=== PATIENT | female | born 1965 | race Asian ===

== ENCOUNTER 2018-05-10 10:17 | Day surgery (SDC) | payer OTHER ==
[~2018-05-10] VITALS: Ht 157.5 cm; Wt 72.7 kg
[2018-05-10 11:15] VITALS: BP 126/75
[2018-05-10] MEDS ORDERED: PIOG30TA4 PO (11:50)
[2018-05-10] MEDS ORDERED: CHOL2000 PO (11:50)
[2018-05-10] MEDS ORDERED: ATOR40TA PO (11:50)
[2018-05-10] MEDS ORDERED: LORA10TA3 PO (11:50)
[2018-05-10] MEDS ORDERED: ALLO300T PO (11:50)
[2018-05-10] MEDS ORDERED: LOSA25TA6 PO (11:50)
[2018-05-10 12:17] LABS: MEAN CORPUSCULAR HEMOGLOBIN 32.8 pg (27.0-34.8); MEAN CORPUSCULAR HGB CONC 34.4 g/dL (32.4-35.8); MEAN CORPUSCULAR VOLUME 95.3 fL (80-100); RED BLOOD COUNT 3.71 x10^6/uL (3.82-5.3); RED CELL DISTRIBUTION WIDTH 13.5 % (9.6-15.2)
[2018-05-10 12:24] LABS: ANION GAP 10 mmol/L (5-15); CALCIUM 9.7 mg/dL (8.5-10.1); CHLORIDE 100 mmol/L (98-107)
[2018-05-10 12:25] LABS: CREATININE 5.63 mg/dL (0.55-1.02)
[2018-05-10 12:39] LABS: BASOPHILS # (AUTO) 0.03 x10^3/uL (0-0.1); BASOPHILS % (AUTO) 1 % (0-1); EOSINOPHILS # (AUTO) 0.25 x10^3/uL (0-0.4); EOSINOPHILS % (AUTO) 5 % (1-7); LYMPHOCYTES # (AUTO) 1.65 x10^3/uL (1-3.4); LYMPHOCYTES % (AUTO) 30 % (22-44); MD SCAN; MONOCYTES # (AUTO) 0.48 x10^3/uL (0.2-0.8); MONOCYTES % (AUTO) 9 % (2-9); NEUTROPHILS # (AUTO) 3.14 x10^3/uL (1.8-6.8); NEUTROPHILS % (AUTO) 57 % (42-75); PLATELET COUNT 95 x10^3/uL (130-400)
[2018-05-10] MEDS ORDERED: FENTANYL PF 100 MCG/2ML ONE (13:29)
[2018-05-10] MEDS ORDERED: VERAPAMIL 2.5 MG/ML, 2ML ONE (13:29)
[2018-05-10] MEDS ORDERED: MIDAZOLAM 1 MG/ML, 2ML ONE (13:29)
[2018-05-10] MEDS ORDERED: HEPARIN 1,000 UNITS/ML, 10ML ONE (13:29)
[2018-05-10] MEDS ORDERED: BIVALIRUDIN 250 MG ONE (13:29)
[2018-05-10] MEDS ORDERED: SODIUM CHLORIDE 0.9% 1,000 ML IV SCH (14:38)
== END 2018-05-10 17:19 | disposition home or self-care (01) ==
LOC: CACL 10:17
PROVIDERS: ATTEND Internal Medicine Cardiovascular Disease
DX: R07.9 Chest pain, unspecified (principal); I10 Essential (primary) hypertension; E78.5 Hyperlipidemia, unspecified; I44.7 Left bundle-branch block, unspecified; E13.9 Other specified diabetes mellitus without complications; I42.9 Cardiomyopathy, unspecified; Z88.8 Allergy status to other drugs, medicaments and biological substances
CPT/HCPCS: 36415; 71046; 80048; 85025; 93458; 99156; C1769; C1894; J1644; J2250; J3010; Q9967; J0583

== ENCOUNTER 2019-08-05 07:30 | Emergency (ER) | payer OTHER, MEDICARE ==
[~2019-08-05] VITALS: Ht 157.5 cm; Wt 68.5 kg
[~2019-08-05 07:30] MED LIST: ALLO300T PO; ATOR40TA PO; CHOL2000 PO; LORA-247 PO; LOSA25TA25 PO; PIOG30TA4 PO
[2019-08-05] MEDS ORDERED: MECLIZINE CHEWABLE 25 MG TAB PO ONE (08:00)
[2019-08-05] MEDS ORDERED: ONDANSETRON 2MG/ML, 2ML IVPush ONE (08:00)
[2019-08-05] MEDS ORDERED: SODIUM CHLORIDE FLUSH 10ML SYR IVF ONE (08:00)
--- NOTE | 2019-08-05 08:06 | NUR ---
PT PRESENTS TO ED WITH DIZZINESS STARTING MONDAY. PT DENIES CP, N/V/D. PT REPORTS LAST DIALYSIS MONDAY, AND DUE TODAY FOR MORE. IV START. XRAY AT BEDSIDE. PT DIZZINESS STOPS WHEN PT IS STILL, INCREASES WITH HEAD TURNING. DAUGHTER AT BEDSIDE. SIDE RAILS UP, CALL LIGHT IN REACH. BLANKET IN PLACE. EKG COMPLETED.
[2019-08-05] MEDS ORDERED: ONDANSETRON 2MG/ML, 2ML ONE (08:09)
[2019-08-05] MEDS ORDERED: MECLIZINE CHEWABLE 25 MG TAB ONE (08:09)
[2019-08-05 08:34] LABS: BASOPHILS # (AUTO) 0.04 x10^3/uL (0-0.1); BASOPHILS % (AUTO) 1 % (0-1); EOSINOPHILS # (AUTO) 0.44 x10^3/uL (0-0.4); EOSINOPHILS % (AUTO) 7 % (1-7); LYMPHOCYTES # (AUTO) 1.25 x10^3/uL (1-3.4); LYMPHOCYTES % (AUTO) 20 % (22-44); MD NO; MEAN CORPUSCULAR HEMOGLOBIN 32.4 pg (27.0-34.8); MEAN CORPUSCULAR HGB CONC 33.6 g/dL (32.4-35.8); MEAN CORPUSCULAR VOLUME 96.4 fL (80-100); MEAN PLATELET VOLUME 7.4 fL (7.4-10.4); MONOCYTES # (AUTO) 0.39 x10^3/uL (0.2-0.8); MONOCYTES % (AUTO) 6 % (2-9); NEUTROPHILS # (AUTO) 4.13 x10^3/uL (1.8-6.8); NEUTROPHILS % (AUTO) 66 % (42-75); PLATELET COUNT 187 x10^3/uL (130-400); RED BLOOD COUNT 3.57 x10^6/uL (3.82-5.3); RED CELL DISTRIBUTION WIDTH 12.7 % (9.6-15.2)
[2019-08-05 08:45] LABS: ALBUMIN 3.6 g/dL (3.4-5.0); ANION GAP 8 mmol/L (5-15); CALCIUM 9.7 mg/dL (8.5-10.1); CHLORIDE 110 mmol/L (98-107); CREATININE 7.32 mg/dL (0.55-1.02)
--- NOTE | 2019-08-05 08:47 | NUR ---
PT TAKEN TO CT VIA JOSE. NAD NOTED AT THIS TIME.
[2019-08-05 08:48] LABS: TROPONIN I < 0.015 ng/mL (0.000-0.045)
[2019-08-05] MEDS ORDERED: DIAZEPAM 5 MG/ML, 2ML ONE (09:09)
--- NOTE | 2019-08-05 09:12 | NUR ---
Patient continues to have complaints of dizziness. RN administered about 2.5 mg IV valium before the patient started to complain of pain at the site. No erythema or edema at IV site. BINTA Garrett aware. Patient on pulse ox and NIBP.
[2019-08-05] MEDS ORDERED: DIAZEPAM 5 MG/ML, 10ML VIAL IV ONE (09:30)
[2019-08-05] MEDS ORDERED: DIAZEPAM 5 MG TABLET PO ONE (09:30)
[2019-08-05] MEDS ORDERED: DIAZEPAM 5 MG TABLET ONE (09:32)
--- NOTE | 2019-08-05 10:08 | NUR ---
Patient arousable to verbal command. Reports drowsiness. Not ready for DC.
[2019-08-05 10:38] VITALS: BP 143/75
--- NOTE | 2019-08-05 10:48 | NUR ---
Patient reports decreased dizziness. Patient/Caregiver given discharge instructions and they have confirmed that they understand the instructions. Patient ambulatory with steady gait.
== END 2019-08-05 10:52 | disposition home or self-care (01) ==
LOC: ED 10:35
DX: R42 Dizziness and giddiness (principal); R51 Headache; E11.9 Type 2 diabetes mellitus without complications
CPT/HCPCS: 36415; 70450; 71045; 80048; 82040; 83880; 84484; 85025; 93005; 96374; 96375; 99284; J2405; J3360